=== PATIENT | male | born 1970 | race Caucasian/White ===

== ENCOUNTER 2023-02-03 14:14 | Emergency (ER) | payer OTHER ==
[~2023-02-03] VITALS: Ht 185.4 cm; Wt 88.5 kg
[2023-02-03] MEDS ORDERED: ADDERALL 30 MG30 MG (14:41)
== END 2023-02-03 18:36 | disposition home or self-care (01) ==
LOC: ER 14:14
DX: S52.121A Displaced fracture of head of right radius, initial encounter for closed fracture (principal); V00.141A Fall from scooter (nonmotorized), initial encounter; Y93.89 Activity, other specified; Y92.413 State road as the place of occurrence of the external cause